=== PATIENT | male | born 1955 | race Caucasian/White ===

== ENCOUNTER 2020-04-28 13:00 | Emergency (ER) | payer MEDICAID ==
[~2020-04-28] VITALS: Ht 167.6 cm; Wt 226.8 kg
[2020-04-28] MEDS ORDERED: HYDROcodone/acetaminophen 10/325mg tab PO ONE (14:00)
[2020-04-28] MEDS ORDERED: ondansetron 4mg rapidly disintigrating tab PO ONE (14:00)
[2020-04-28 15:18] VITALS: BP 134/68
== END 2020-04-28 15:15 | disposition home or self-care (01) ==
LOC: ER 13:01
DX: M25.511 Pain in right shoulder (principal); R06.02 Shortness of breath; R60.0 Localized edema; J44.9 Chronic obstructive pulmonary disease, unspecified; F17.200 Nicotine dependence, unspecified, uncomplicated
CPT/HCPCS: 73030; 99284